=== PATIENT | male | born 1955 | race Caucasian/White ===

== ENCOUNTER 2016-10-28 17:55 | Emergency (ER) | payer BC, OTHER ==
[~2016-10-28] VITALS: Ht 177.8 cm; Wt 79.4 kg
[2016-10-28 19:09] VITALS: BP 140/80
--- NOTE | 2016-10-28 22:18 | Emergency Room Report ---
History of Present Illness General Chief Complaint: Lower Extremity Injury Source: Patient Present Illness HPI The patient is a 61-year-old male presenting for left foot pain. He states that pain began 3 days prior at work after a machine rolled over the foot. He was seen at an urgent care after the injury and x-rays were done which were unremarkable. He was then told to come to this emergency department for evaluation. The patient states that the swelling has improved but pain has continued. It is described as an 8/10 dull ache to the left first toe and does not radiate. Worse with touch and walking. The patient denies any other symptoms including numbness, tingling, nausea, vomiting, fever, chills Allergies: Coded Allergies: No Known Allergies (Unverified , 10/28/16) Patient History Past Medical History: see triage record Pertinent Family History: none Reviewed Nursing Documentation: PMH: Agreed, PSxH: Agreed Nursing Documentation-[facility] Past Medical History: No Stated History Review of Systems All Other Systems: negative except mentioned in HPI Physical Exam Vital Signs Date Time Temp Pulse Resp B/P Pulse Ox O2 Delivery O2 Flow Rate FiO2 10/28/16 18:01 98.1 78 16 140/80 98 Room Air Sp02 EP Interpretation: reviewed, normal General Appearance: no apparent distress, alert, GCS 15, non-toxic Head: normocephalic, atraumatic Eyes: bilateral eye PERRL, bilateral eye normal inspection ENT: hearing grossly normal, normal pharynx, no angioedema, normal voice Neck: full range of motion, supple/symm/no masses Musculoskeletal: normal range of motion, swelling - minimal to L 1st toe, tender - TTP over the ventral L 1st toe Neurologic: alert, oriented x3, responsive, motor strength/tone normal, sensory intact, speech normal Psychiatric: judgement/insight normal, memory normal, mood/affect normal, no suicidal/homicidal ideation Skin: abrasions - L 1st toe ventral Lymphatic: no adenopathy Procedures Splinting Splinting : Consent: Verbal Location: L foot Pre-Made Type: cast shoe Pre-Proc Neuro Vasc Exam: normal Post-Proc Neuro Vasc Exam: normal Patient Tolerated: Well Complications: None Medical Decision Making PA Attestation Dr. Sinha is my supervising physician. Patient management was discussed with my supervising physician Diagnostic Impression: Primary Impression: Contusion of toe of left foot Qualified Codes: S90.212A - Contusion of left great toe with damage to nail, initial encounter ER Course The patient is a 61-year-old male presenting for left foot pain. Ddx considered include but not limited to sprain/strain, fracture, contusion Physical exam: No apparent distress Left first toe reveals an abrasion and swelling. There is also ecchymosis. Tenderness to palpation over the IP joint primarily. Full active range of motion The patient refuses x-ray of the foot as he states he is alert he had an x-ray which was unremarkable. Foot is placed in a cast shoe. He will continue using RICE techniques and NSAIDs He is given ER precautions. He will return to work with limited standing and walking. He is to followup with workers compensation Last Vital Signs Date Time Temp Pulse Resp B/P Pulse Ox O2 Delivery O2 Flow Rate FiO2 10/28/16 19:09 98.1 16 140/80 98 Room Air 10/28/16 18:01 78 Status: improved Disposition: HOME, SELF-CARE Condition: Improved Patient Instructions: Foot Contusion Additional Instructions: I discussed my findings with the patient. All questions and concerns have been answered. Treatment and medication compliance have been addressed. I advised the patient that they need to follow up with PMD in 3-5 days. Return to ED if pain remains or worsens, numbness or tingling occurs, new rash is noticed, fever is noticed, or if needed for any reason. Patient verbalized understanding of discharge instructions. JOSE QUIROGA Oct 28, 2016 22:18
== END 2016-10-28 19:17 | disposition home or self-care (01) ==
LOC: EMR 18:38
DX: S90.32XA Contusion of left foot, initial encounter (principal); W31.89XA Contact with other specified machinery, initial encounter; Y92.512 Supermarket, store or market as the place of occurrence of the external cause; Y99.0 Civilian activity done for income or pay
CPT/HCPCS: 29540; 99283